=== PATIENT | female | born 1980 | race Asian ===

== ENCOUNTER 2024-06-30 17:24 | Emergency (ER) | payer OTHER ==
[2024-06-30 17:42] VITALS: BP 143/77; O2SAT 98
[2024-06-30 17:44] LABS: RAPID STREP SCREEN POSITIVE (Negative)
--- NOTE | 2024-06-30 17:47 | ED Physician Documentation ---
PD HPI URI - Stated complaint Stated Complaint: FEVER/SORE THROAT - Chief complaint Chief Complaint: Heent - History obtained from History obtained from: Patient - History of Present Illness Timing - onset: How many days ago (2) Timing duration: Days Timing details: Abrupt onset, Still present Associated symptoms: Chills, Sore throat, Swollen nodes. No: Nasal congestion, Dry cough Contributing factors: No: Sick contact Improves by: Medication (lessened fever and pain with tylneol but then back aftr few hours) Similar symptoms before: Has not had sx before Review of Systems Constitutional: reports: Chills, Myalgias Throat: reports: Sore throat, Swollen tonsils Respiratory: denies: Cough PD PAST MEDICAL HISTORY - Past Medical History Past Medical History: Yes Cardiovascular: Hypertension - Past Surgical History Past Surgical History: No - Present Medications Home Medications: Ambulatory Orders Medication Instructions Recorded Confirmed Penicillin V Potassium 500 mg PO TID #20 tablet 06/30/24 - Allergies Allergies/Adverse Reactions: Allergies Allergy/AdvReac Type Severity Reaction Status Date / Time lisinopril AdvReac Respiratory Verified 06/30/24 18:18 - Social History Does the pt smoke?: No Smoking Status: Never smoker Does the pt drink ETOH?: No Does the pt have substance abuse?: No - Immunizations Immunizations are current?: Yes - POLST Patient has POLST: No PD ED PE NORMAL - Vitals Vital signs reviewed: Yes - General General: Alert and oriented X 3, No acute distress, Well developed/nourished - HEENT HEENT: Ears normal. No: Pharynx benign (redness with swelling at tonsils. No peritonsillar edema. Normal voice and breathing. ) Results - Vitals Vitals: Oxygen O2 Source Room air - Labs Labs: Laboratory Tests 06/30/24 17:33 Group A Strep Rapid POSITIVE H PD Medical Decision Making - ED course Complexity details: considered differential (symptoms c/w pharyngitis and rapids trep test psoitive. Not sure where she might have gotten it. Kids at home not sick. No exposure to illness in rest of activity. ), d/w patient Departure - Departure Disposition: 01 Home, Self Care Clinical Impression: Acute sore throat, Acute streptococcal pharyngitis Condition: Stable Record reviewed to determine appropriate education?: Yes Instructions: ED Strep Pharyngitis Conf Follow-Up: JARTET CHURCH, [Primary Care Provider] - Prescriptions: Penicillin V Potassium 500 mg PO TID #20 tablet Comments: Your throat swab is positive for group A strep. Stay well-hydrated. Continue with Tylenol and/or ibuprofen regularly for the next day or 2 as needed for fevers and pains. I would anticipate improvement once on antibiotics. Penicillin 500 mg 3 times a day further the next week. You should be improving well over the next few days and resolved by even 3 to 4 days. Be sure to finish out the antibiotics. You were given a dose of a anti-inflammatory here to as a single dose steroid anti-inflammatory. This will hopefully help decrease symptoms a lot overnight as well. You would be considered less infectious after 24 hours on the antibiotics. While taking antibiotics, be sure to stay well-hydrated and add some probiotic either supplements or dietary foods to decrease the side effects of antibiotics in your intestine. I sent your prescription to your preferred pharmacy. You were given a starter dose of the antibiotic here just now but it is okay to take another 1 before bed tonight. Forms: PCP List Discharge Date/Time: 06/30/24 18:20
[2024-06-30] MEDS: ACETAMINOPHEN 500 MG TABLET PO STA (18:13)
[2024-06-30] MEDS: dexAMETHasone 4 MG TABLET PO STA (18:13)
[2024-06-30] MEDS: PENICILLIN VK 250 MG TABLET PO STA (18:13)
== END 2024-06-30 18:20 | disposition home or self-care (01) ==
LOC: ED 17:24
DX: J02.0 Streptococcal pharyngitis (principal)
CPT/HCPCS: 87430; 99283; A9270; J8540

== ENCOUNTER 2024-07-26 19:01 | Outpatient (CLI) | payer OTHER ==
--- NOTE | 2024-07-28 00:35 | Ultrasound Report ---
PROCEDURE: Pelvic Complete INDICATIONS: PELVIC PAIN TECHNIQUE: Transabdominal ultrasound of the pelvis was obtained. COMPARISON: None. FINDINGS: Uterine size: Uterus measures 10.4 x 4.5 x 5.0 cm, and is anteverted. Myometrium: The myometrium is homogeneous. Endometrium: The endometrium measures 15 mm in combined thickness. Right ovary: The right ovary measures 1.8 x 1.8 x 1.9 cm. Calculated ovarian volume 3.2 cc. Left ovary: The left ovary measures 3.4 x 3.2 x 3.2 cm. Calculated ovarian volume 17 cc. 2.1 x 2.2 x 1.4 cm simple cyst Other: No pathologic free abdominal or pelvic fluid. IMPRESSION: Left ovarian simple cyst Reviewed by: Kalyan Francis MD on 07/27/2024 11:33 PM NATALIA Approved by: Kalyan Francis MD on 07/27/2024 11:33 PM NATALIA Station ID: [id number]
== END 2024-07-26 19:02 | disposition home or self-care (01) ==
LOC: DI 19:01
PROVIDERS: ATTEND Nurse Practitioner Family
DX: R10.2 Pelvic and perineal pain (principal); N83.292 Other ovarian cyst, left side